=== PATIENT | female | born 1960 | race Caucasian/White ===

== ENCOUNTER 2021-08-11 09:24 | Outpatient (CLI) | payer OTHER, SELFPAY ==
--- NOTE | 2021-08-11 09:47 | XR_ITS ---
WS: [id number] RIBS BILATERAL WITH CHEST TECHNIQUE: 4 views bilateral ribs with PA chest CLINICAL INFORMATION: Fall across steps 08/08/2021 COMPARISON: None. FINDINGS: Lungs are well aerated. No acute pulmonary infiltrates. No focal pneumonia or pleural fluid. Normal cardiac silhouette. Aortic calcification. No visualized rib fractures. XR/XR ribs BI mn 4V w CXR1V [id number] IMPRESSION: 1. Lungs are well aerated. No acute pulmonary infiltrates. 2. No visualized rib fractures.
== END 2021-08-11 09:25 | disposition home or self-care (01) ==
PROVIDERS: Visit Provider Family Medicine Adult Medicine
DX: S22.31XA Fracture of one rib, right side, initial encounter for closed fracture (principal); W10.8XXA Fall (on) (from) other stairs and steps, initial encounter
CPT/HCPCS: 71111

== ENCOUNTER → 2025-01-01 11:00 | Outpatient (BNVA) | payer OTHER, SELFPAY | DX: R25.1 Tremor, unspecified (principal) | CPT/HCPCS: 80053; 84439; 84443; 85025 ==

== ENCOUNTER 2025-01-27 11:57 | Emergency (ER) | payer OTHER, SELFPAY ==
--- NOTE | 2025-01-27 11:58 | XR_ITS ---
WS: [id number] Exam: XR chest 1V portable [id number] Date/Time of Exam: 01/27/2025 12:04 PM Reason For Exam: dyspnea/cough Comparison 08/11/2021. Lungs are hyperinflated and clear. Normal cardiomediastinal silhouette. Bony structures are intact. XR/XR chest 1V portable [id number] IMPRESSION: 1. No acute cardiopulmonary finding.
--- NOTE | 2025-01-27 11:59 | ECG_ITS ---
[facility]27 Pat Name: Sameera Burgess Department: Room: Gender: Female Community Health Education Coordinator: : 1960 Requested By: Nick Jordan Order Number: [id number] Cheri MD: Mike Rick M.D. Measurements Intervals [place] Rate: 65 P: 83 WY: 147 QRS: 52 QRSD: 96 T: 73 QT: 420 QTc: 437 Interpretive Statements SINUS RHYTHM POSSIBLE RIGHT VENTRICULAR CONDUCTION DELAY [RSR (QR) IN V1/V2] No previous ECG available for comparison Electronically Signed On 01-27-2025 17:10:38 CDT by Mike Rick M.D. [email or web address]
[2025-01-27 12:02] VITALS: BP 149/79; PULSE 70; RESP 16; TEMP 36.8; O2SAT 95; BMI 18.0
--- NOTE | 2025-01-27 12:05 | ED_ITS ---
HPI - Syncope 2 General: Chief Complaint: Syncope Stated Complaint: SYNCOPAL Time Seen by Provider: 01/27/25 11:58 History of Present Illness: 64-year-old female to the emergency room via EMS after syncopal episode while at work. 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 She has a history of previous episodes of dizziness and syncope Associated symptoms: Deny abdominal pain, chest pain or fever(s) Related Data Previous Rx's ?Medication ?Instructions ?Recorded propranolol 60 mg capsule,24 60 mg PO DAILY tremor #30 caps 01/01/25 hr,extended release amlodipine 2.5 mg tablet 2.5 mg PO DAILY #30 tabs Allergies Allergy/AdvReac Type Severity Reaction Status Date / Time No Known Allergies Allergy Verified 01/02/25 10:40 Review of Systems 2 Const: Denies: fever(s) or chills Card: Denies: chest pain Resp: Denies: dyspnea GI: Denies: abdominal pain : Denies: dysuria, urinary frequency or urinary urgency Musc: Denies: neck pain or back pain Skin/Breast: Denies: rash PFSH ED 2 PFSH: Medical History Nicotine dependence, cigarettes, with other nicotine-induced disorders Tremor of unknown origin Surgical History Hx of tubal ligation had this procedure done twice Family History Grandmother Diabetes Mother Postsurgical cardiac pacemaker in situ Sister Diabetes Fibromyalgia Psychiatric illness Social History Smoking and tobacco/nicotine status: current every day tobacco/nicotine user cigarettes Packs smoked per day: 0.5 [ Other cigarette details: started age 12; 0.5 to 1ppd most of life; ] Alcohol intake: current Alcohol intake frequency: 0-2 Drinks per Day Substance/Drug Use: never Household members: none Marital status: / Number of children: 6 Highest education level completed: GED or Equivalent Current occupational status: employed Current occupation: [employer] Physical Exam 2 Const: GENERAL APPEARANCE: cooperative ORIENTATION/CONSCIOUSNESS: Yes awake, Yes oriented to person, Yes oriented to place and Yes oriented to time HENMT: COMMON NORMALS: normocephalic, atraumatic and hearing grossly normal bilaterally HEAD & SCALP: normocephalic and atraumatic Resp: COMMON NORMALS: normal respiratory effort, No retractions, No use of accessory muscles and clear to auscultation bilaterally AUSCULTATION: clear to auscultation bilaterally Cardio: COMMON NORMALS: regular rate, regular rhythm and No murmurs present (Cardio) RATE: regular rate RHYTHM: regular rhythm GI: COMMON NORMALS: Soft to palpation and No hepatosplenomegaly present A USCULTATION: Yes normoactive bowel sounds PALPATION: Yes Soft to palpation, No Tenderness to palpation present (GI), No Guarding due to palpation present (GI) and Yes No hepatosplenomegaly present Extremity: COMMON NORMALS: normal to inspection, capillary refill normal, no clubbing, cyanosis or edema, no calf tenderness and no pedal edema Neuro: SENSORIUM/ORIENTATION: Yes oriented to person, Yes oriented to place and Yes oriented to time Skin: COMMON NORMALS: no rashes or lesions noted GENERAL SKIN EXAM: no rashes or lesions noted Course 2 Vital Signs: Vital signs: Vital Signs Temperature 98.2 F 01/27/25 12:02 Pulse Rate 72 01/27/25 14:25 Respiratory Rate 16 01/27/25 14:16 Blood Pressure 186/84 01/27/25 14:25 Pulse Oximetry 96 01/27/25 14:25 Oxygen Delivery Me thod Room Air 01/27/25 14:16 MDM - Syncope Medical Decision Making Exam unremarkable patient reports some of this is worsened since starting on propranolol. She is also been very tired she tried off for a while and then restarted it was initially started because of tremor. Will take her off of the propranolol at this point I think the side effects are worse than any benefits. Will add amitriptyline amlodipine 2.5 mg once daily. Follow-up with primary care within the next week. Medical Records I reviewed the patient's medical records. Lab Data I reviewed the patient's lab results. 01/27/25 12:05 01/27/25 12:05 Radiology Impressions Chest X-Ray 01/27/25 11:58 IMPRESSION: 1. No acute cardiopulmonary finding. Sacrum and Coccyx X-Ray 01/27/25 12:57 IMPRESSION: 1. No fracture. SI joint DJD. Laboratory Results WBC 14.04 10^3/uL (3.29-11.43) H 01/27/25 12:05 RBC 4.79 10^6/uL (3.85-5.65) 01/27/25 12:05 Hgb 15.70 g/dL (11.27-16.99) 01/27/25 12:05 Hct 46.2 % (36-47) 01/27/25 12:05 MCV 96.5 fl (85-98) 01/27/25 12:05 MCH 32.8 pg (27-33) 01/27/25 12:05 MCHC 34.0 g/dL (30-55) 01/27/25 12:05 RDW 13.2 % (12.1-15.1) 01/27/25 12:05 Plt Count 247 10^3/cmm (157-399) 01/27/25 12:05 MPV 11.5 fL (7.4-10.4) H 01/27/25 12:05 Neut % (Auto) 60.9 % 01/27/25 12:05 Lymph % (Auto) 30.9 % 01/27/25 12:05 [place] % (Auto) 5.6 % 01/27/25 12:05 Eos % (Auto) 1.9 % 01/27/25 12:05 Baso % (Auto) 0.2 % 01/27/25 12:05 Neut # (Auto) 8.54 10^3/uL (1.8-7.7) H 01/27/25 12:05 Lymph # (Auto) 4.3 10^3/uL (0.8-4.8) 01/27/25 12:05 [place] # (Auto) 0.8 10^3/uL (0.2-0.9) 01/27/25 12:05 Eos # (Auto) 0.3 10^3/uL (0.0-0.8) 01/27/25 12:05 Baso # (Auto) 0.0 10^3/uL (0.0-0.1) 01/27/25 12:05 Nucleated RBC % (auto) 0 % 01/27/25 12:05 Nucleated RBCs # 0.0 /100WBC 01/27/25 12:05 Sodium 138 mmol/L (136-145) 01/27/25 12:05 Potassium 4.4 mmol/L (3.5-5.1) 01/27/25 12:05 Chloride 100 mmol/L (98-107) 01/27/25 12:05 Carbon Dioxide 24 mmol/L (22-29) 01/27/25 12:05 Anion Gap 18.4 (5-19) 01/27/25 12:05 BUN 10 mg/dL (8-23) 01/27/25 12:05 Creatinine 0.7 mg/dL (0.5-0.9) 01/27/25 12:05 GFR Calculation 84.0 mL/min (90-130) L 01/27/25 12:05 Glucose 129 mg/dL (65-115) H 01/27/25 12:05 Calculated Osmolality 287 mOsm/kg (285-295) 01/27/25 12:05 Calcium 9.7 mg/dL (8.5-10.5) 01/27/25 12:05 Total Bilirubin 0.4 mg/dL (0.15-1.2) 01/27/25 12:05 AST 18 U/L (0-32) 01/27/25 12:05 ALT 14 U/L (0-33) 01/27/25 12:05 Alkaline Phosphatase 100 U/L (35-105) 01/27/25 12:05 Troponin T Baseline 8 ng/L (0-10) 01/27/25 12:05 Troponin T 120 Minute 6.80 ng/L (0-10) 01/27/25 14:09 Delta Troponin T -1.20 ABS# (0-10) L 01/27/25 14:09 Total Protein 6.5 g/dL (6.6-8.7) L 01/27/25 12:05 Albumin 4.3 g/dL (3.5-5.2) 01/27/25 12:05 Globulin 2.2 g/dL (1.3-4.6) 01/27/25 12:05 Urine Color Dark yellow (Yellow) A 01/27/25 12:48 Urine Appearance Clear (CLEAR) 01/27/25 12:48 Urine pH 6.0 (5-7) 01/27/25 12:48 Ur Specific [place] 1.024 (1.005-1.030) 01/27/25 12:48 Urine Protein 2+ (Negative) A 01/27/25 12:48 Urine Glucose (UA) Negative (Normal) 01/27/25 12:48 Urine Ketones 1+ (Negative) H 01/27/25 12:48 Urine Blood Negative (Negative) 01/27/25 12:48 Urine Nitrate Negative (Negative) 01/27/25 12:48 Urine Bilirubin Negative (Negative) 01/27/25 12:48 Urine Urobilinogen 1.0 mg/dL (Negative) 01/27/25 12:48 Ur Leukocyte Esterase Trace (Negative) A 01/27/25 12:48 Urine RBC 3-5 /hpf (0-2) 01/27/25 12:48 Urine WBC 0-5 /hpf (0-5) 01/27/25 12:48 Ur Squamous Epith Cells 6-10 /hpf (0-5) 01/27/25 12:48 Amorphous Sediment Not Reportable 01/27/25 12:48 Urine Bacteria Trace /hpf (NONE) 01/27/25 12:48 Hyaline Casts 53.76 /lpf 01/27/25 12:48 All radiology interpretation(s) finalized by discharge Discharge Plan Discharge Patient Disposition: Home Clinical Impression: Syncope, Medication side effect Condition: Stable Prescriptions: New amlodipine 2.5 mg tablet 2.5 mg PO DAILY Qty: 30 0RF No Action propranolol 60 mg capsule,extended release 24 hr 60 mg PO DAILY Qty: 30 1RF Discharge Orders: Discharge ED (Routine); Ordered 01/27/25 Ordered By: Nick Sousa Referrals: Chanell Acevedo MD [Primary Care Provider, Family Practice] Discharge Diet: Usual diet Discharge Activity: Increase activity as tolerated Patient Instructions: Opioid Safety, Pain Management, Patient Portal & Susannah Instructions Activity Restrictions/Additional Instructions: Thank you for choosing [facility] for your healthcare needs today. It is very important that you follow up as instructed or that you return to the Emergency Department should you have concerns or if your condition changes or worsens in any way. You were seen in the emergency room after a syncopal episode. Your laboratory tests did not show significant abnormality. Recommend that you stop the propranolol and instead take amlodipine 2.5 mg daily. Recheck with your doctor within the next week Print Language: Faroese Coding Level of Care Code ED Credit Card Interviewer for Lucero Portillo
[2025-01-27 12:13] VITALS: BP 149/79; PULSE 69; RESP 18; O2SAT 96
[2025-01-27 12:13] LABS: Basophils % 0.2 %; Eosinophils # 0.3 10^3/uL (0.0-0.8); Eosinophils % 1.9 %; Hematocrit 46.2 % (36-47); Lymphocytes # 4.3 10^3/uL (0.8-4.8); Lymphocytes % 30.9 %; Mean Corpuscular Hemoglobin 32.8 pg (27-33); Mean Corpuscular Volume 96.5 fl (85-98); Mean Platelet Volume 11.5 fL (7.4-10.4); Monocytes # 0.8 10^3/uL (0.2-0.9); Monocytes % 5.6 %; Neutrophils # 8.54 10^3/uL (1.8-7.7); Neutrophils % 60.9 %; Nucleated Red Blood Cells % 0 %; Platelet Count 247 10^3/cmm (157-399); Red Blood Count 4.79 10^6/uL (3.85-5.65); Red Cell Distribution Width 13.2 % (12.1-15.1); White Blood Count 14.04 10^3/uL (3.29-11.43)
--- OUTSIDE RECORDS SUMMARY | 2025-01-27 12:17 | XMS_ITS | Encounter Summary ---
Author Organization [employer] [facility] Address [address] [place] [address] Care Team Providers Care Material Control Specialist Name Role Phone Unavailable Primary Care Provider Unavailabl e Encounter Details Date Type Department Care Team (Late st Contact Info) Description 08/10/2007 Outpatient Historical [facility] 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
--- OUTSIDE RECORDS SUMMARY | 2025-01-27 12:17 | XMS_ITS | Clinical Summary ---
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
[2025-01-27 12:35] LABS: Alanine Aminotransferase 14 U/L (0-33); Albumin Level 4.3 g/dL (3.5-5.2); Alkaline Phosphatase 100 U/L (35-105); Aspartate Amino Transferase 18 U/L (0-32); Blood Urea Nitrogen 10 mg/dL (8-23); Calcium 9.7 mg/dL (8.5-10.5); Carbon Dioxide 24 mmol/L (22-29); Chloride 100 mmol/L (98-107); Globulin 2.2 g/dL (1.3-4.6); Glucose 129 mg/dL (65-115); Osmolality Calculated 287 mOsm/kg (285-295); Sodium 138 mmol/L (136-145); Total Bilirubin 0.4 mg/dL (0.15-1.2); Total Protein 6.5 g/dL (6.6-8.7)
[2025-01-27 12:36] LABS: Anion Gap 18.4 (5-19); Potassium 4.4 mmol/L (3.5-5.1)
[2025-01-27 12:37] VITALS: BP 135/81; BP 150/70; BP 161/68; PULSE 60; PULSE 67
[2025-01-27 12:37] LABS: Troponin(5th) Baseline 8 ng/L (0-10)
[2025-01-27 12:56] VITALS: BP 135/81; PULSE 66; RESP 16; O2SAT 96
--- NOTE | 2025-01-27 12:56 | PC.NURSE ---
PATIENT AMBULATED TO THE RESTROOM. PATIENT STATES DIZZY AND WALKING SLOW. DR DAVIS NOTIFIED.
--- NOTE | 2025-01-27 12:57 | XR_ITS ---
WS: [id number] Exam: XR sacrum coccyx min 2V [id number] Date/Time of Exam: 01/27/2025 1:01 PM Reason For Exam: trauma No sacrococcygeal fracture. Degenerative change of the SI joints. No sign of bone destruction. XR/XR sacrum coccyx min 2V [id number] IMPRESSION: 1. No fracture. SI joint DJD.
[2025-01-27 13:00] LABS: Bilirubin Urine Negative (Negative); Blood Urine Negative (Negative); Glucose Urine UA Negative (Normal); Ketones Urine 1+ (Negative); Leukocyte Esterase Urine Trace (Negative); Nitrate Urine Negative (Negative); Protein Urine 2+ (Negative); Specific Gravity, Urine 1.024 (1.005-1.030); Urine Appearance Clear (CLEAR); Urine Color Dark Yellow (Yellow)
[2025-01-27 13:05] LABS: Add Urine Microscopic? YES; Bacteria Urine Trace /hpf; Hyaline Casts Urine 53.76 /lpf; WBC Urine 0-5 /hpf (0-5)
[2025-01-27 13:15] LABS: UA Slide Review UA Slide Review Perf
[2025-01-27 13:16] LABS: Add Urine Culture? No
[2025-01-27] MEDS: sodium chloride 0.9% 500 ML 999 ML IV (13:18)
[2025-01-27 14:16] VITALS: BP 172/74; PULSE 67; RESP 16; O2SAT 97
[2025-01-27 14:25] VITALS: BP 186/84; PULSE 72; O2SAT 96
== END 2025-01-27 14:27 | disposition home or self-care (01) ==
PROVIDERS: Emergency Provider Family Medicine; PCP Family Medicine
DX: R55 Syncope and collapse (principal); T50.905A Adverse effect of unspecified drugs, medicaments and biological substances, initial encounter; X58.XXXA Exposure to other specified factors, initial encounter; F17.210 Nicotine dependence, cigarettes, uncomplicated
CPT/HCPCS: 36415; 71045; 72220; 80053; 81001; 84484; 85025; 93005; 96360; 99285; J7040